=== PATIENT | female | born 1985 | race Caucasian/White ===

== ENCOUNTER 2019-11-23 13:32 | Emergency (ER) | payer OTHER ==
[~2019-11-23] VITALS: Ht 172.7 cm; Wt 74.4 kg
--- NOTE | 2019-11-23 13:40 | NUR ---
NO ANSWER X2
[2019-11-23 14:03] LABS: MICROSCOPIC NOT IND
[2019-11-23 14:21] LABS: BASOPHILS # (AUTO) 0.01 x10^3/uL (0-0.1); BASOPHILS % (AUTO) 0 % (0-1); EOSINOPHILS # (AUTO) 0.14 x10^3/uL (0-0.4); EOSINOPHILS % (AUTO) 3 % (1-7); LYMPHOCYTES # (AUTO) 1.39 x10^3/uL (1-3.4); LYMPHOCYTES % (AUTO) 26 % (22-44); MD NO; MEAN CORPUSCULAR HEMOGLOBIN 29.4 pg (27.0-34.8); MEAN CORPUSCULAR HGB CONC 33.6 g/dL (32.4-35.8); MEAN CORPUSCULAR VOLUME 87.6 fL (80-100); MEAN PLATELET VOLUME 7.5 fL (7.4-10.4); MONOCYTES # (AUTO) 0.41 x10^3/uL (0.2-0.8); MONOCYTES % (AUTO) 8 % (2-9); NEUTROPHILS # (AUTO) 3.43 x10^3/uL (1.8-6.8); NEUTROPHILS % (AUTO) 64 % (42-75); PLATELET COUNT 284 x10^3/uL (130-400); RED BLOOD COUNT 4.71 x10^6/uL (3.82-5.3); RED CELL DISTRIBUTION WIDTH 13.1 % (9.6-15.2)
--- NOTE | 2019-11-23 14:22 | NUR ---
BREAK RN: PT TO ED WITH R FLANK PAIN, PT PLACED ON MONITOR AND GIVEN BLANKETS. IV ESTABLISHED. REPORT TO DESTINEY JONES
[2019-11-23] MEDS ORDERED: MORPHINE SULFATE 4 MG/ML, 1ML ONE (14:28)
[2019-11-23] MEDS ORDERED: ONDANSETRON 2MG/ML, 2ML ONE (14:28)
[2019-11-23] MEDS ORDERED: ONDANSETRON 2MG/ML, 2ML IVPush ONE (14:30)
[2019-11-23] MEDS ORDERED: MORPHINE SULFATE 4 MG/ML, 1ML IVPush PRN (14:30)
[2019-11-23] MEDS ORDERED: SODIUM CHLORIDE FLUSH 10ML SYR IVF ONE (14:30)
[2019-11-23 14:33] LABS: ALBUMIN 3.8 g/dL (3.4-5.0); ANION GAP 7 mmol/L (5-15); CALCIUM 8.4 mg/dL (8.5-10.1); CHLORIDE 106 mmol/L (98-107)
[2019-11-23 14:39] LABS: ALANINE AMINOTRANSFERASE 26 U/L (12-78); ALKALINE PHOSPHATASE 41 U/L (45-117); BILIRUBIN,TOTAL 0.6 mg/dL (0.2-1.0); CREATININE 0.81 mg/dL (0.55-1.02); TOTAL PROTEIN 7.6 g/dL (6.4-8.2)
--- NOTE | 2019-11-23 15:02 | NUR ---
PT AMBULATED STEADILY TO BR, BACK TO REDWARDS, UPRIGHT & WATCHING TV, STATES PAIN TO FLANK AREA UNCHANGED BUT GENERALLY FEELS A LITTLE BETTER BUT REFUSED ADDITIONAL PAIN MEDS, RESPONDS APPROP TO STAFF, NAD, COMFORT MEASURES PROVIDED, CALL LIGHT WITHIN REACH.
[2019-11-23] MEDS ORDERED: KETOROLAC 30 MG/1 ML IVPush ONE (15:30)
[2019-11-23] MEDS ORDERED: KETOROLAC 30 MG/1 ML ONE (15:46)
--- NOTE | 2019-11-23 15:56 | NUR ---
Patient given discharge instructions and Rx, they have confirmed that they understand the instructions. Patient ambulatory with steady gait.
[2019-11-23 16:12] VITALS: BP 112/70
== END 2019-11-23 16:41 | disposition home or self-care (01) ==
LOC: ED 15:37
DX: R10.11 Right upper quadrant pain (principal); R11.0 Nausea; R63.0 Anorexia
CPT/HCPCS: 36415; 76700; 80053; 81003; 83690; 84703; 85025; 96374; 96375; 99284; J1885; J2270; J2405